=== PATIENT | female | born 1970 | race Caucasian/White ===

== ENCOUNTER → 2024-01-18 08:55 | Outpatient (REF) | payer OTHER, SELFPAY ==
[2024-01-18 17:00] LABS: Urine Albumin Negative (Neg - Trace); Urine Bilirubin Negative (Negative); Urine Character Slightly Cloudy (Clear); Urine Color Yellow; Urine Glucose Negative (Negative); Urine Ketone Negative (Negative); Urine Leukocyte 2+ (Negative); Urine Nitrite Negative (Negative); Urine Occult Blood 2+ (Negative); Urine Specific Gravity 1.015 (<1.030); Urine Urobilinogen Negative (Neg - 1+)
[2024-01-18 17:15] LABS: Urine Squamous Cell 0-2 /LPF (Few)
[2024-01-18 17:16] LABS: Urine White Cell 16-20 /HPF (0-5)
== END ==
LOC: CLAB 08:55
PROVIDERS: ATTENDING PHYSICIAN Obstetrics & Gynecology
DX: N39.0 Urinary tract infection, site not specified (principal)
CPT/HCPCS: 81003; 81015; 87086